=== PATIENT | female | born 1980 | race Two or more races ===

== ENCOUNTER → 2024-05-07 | Outpatient (CLI) | payer MEDICAID, SELFPAY ==
--- NOTE | 2024-05-07 15:03 | XR_ITS ---
Examination: PA lateral chest 2 views TECHNIQUE: Upright PA lateral chest 2 views Exam date and time: May 07, 2024 1554 hours INDICATIONS: Diagnosis respiratory tuberculosis FINDINGS: Normal heart size. Lungs are clear. Moderate thoracic spondylosis 3 mm pulmonary nodule left lower lobe IMPRESSION: No active disease No radiographic findings of tuberculosis Recommend 6 month follow-up PA chest to document stability of 3 mm pulmonary nodule left lower lobe
== END | disposition home or self-care (01) ==
LOC: CDIM 14:34
PROVIDERS: PCP Physician Assistant; Referring Provider Nurse Practitioner Primary Care; Visit Provider Nurse Practitioner Primary Care
DX: Z11.1 Encounter for screening for respiratory tuberculosis (principal); R91.1 Solitary pulmonary nodule
CPT/HCPCS: 71046